=== PATIENT | male | born 1960 | race African-American/Black ===

== ENCOUNTER 2016-12-05 01:48 | Inpatient (IN) ==
[2016-12-05] MEDS ORDERED: Ipratropium/Albuterol Neb 3 ML IH ONE (01:49)
[2016-12-05] MEDS ORDERED: *HR* Nalbuphine 20 MG/ML AMPUL IVP STA (01:49)
[2016-12-05] MEDS ORDERED: Levofloxacin 500 MG/100 ML 500 MG/100 ML BAG IVPB ONE (01:49)
[2016-12-05] MEDS ORDERED: methylPREDNISolone 125 MG/2 ML VIAL IVP ONE (01:49)
--- NOTE | 2016-12-05 01:54 | Emergency Department Note ---
Disposition Clinical Impression: Atypical chest pain Disposition: Admitted As Inpatient Condition: Good Referrals: NO,PCP [Primary Care Provider] - Forms: ED Satisfaction Letter Time of Disposition: 06:53 Chest Pain HPI - General Chief Complaint: ED Chest Pain Stated Complaint: right rib pain Time Seen by Provider: 12/05/16 01:50 Source: patient, EMS Mode of arrival: EMS Limitations: no limitations Vital Signs Reviewed: Yes Nursing Notes Reviewed: Yes - History of Present Illness HPI Narrative: Patient seen earlier today complaining of right rib pain at that time was found to have rib pain was given breathing treatments withstood seemed to help and had sats of 90% H did not want to stay at that time he was then discharged home he now returns back to the emergency room complaining of right rib pain worse with respiration worse with movement he has had cough no congestion denies any abdominal pain or discomfort denies diarrhea melena hematochezia or hematemesis Pt complaint: chest pain Onset (ago): day(s) (2) Duration: constant Onset: during rest, during exertion Pain Location: right chest Severity: moderate, severe Severity scale (1-10): 8 Quality: tightness Improves with: nothing Worsens with: exertion Context: trauma/injury Associated symptoms: Reports: dyspnea. Denies: nausea, vomiting, diaphoresis, sense of impending doom, syncope, palpitations, fever, cough, leg swelling Treatments prior to arrival chest pain: none - Related Data Home Medications Medication Instructions Recorded Confirmed ALPRAZolam [Xanax 1 MG Tablet] 1 mg PO BID PRN 12/04/16 12/04/16 Allopurinol [Zyloprim 300 MG] 300 mg PO DAILY 12/04/16 12/04/16 Amlodipine Besylate 10 mg PO DAILY 12/04/16 12/04/16 Amoxicillin 875 mg PO BID 12/04/16 12/04/16 Bromfed Dm Cough Syrup 10 ml PO Q8H 12/04/16 12/04/16 Cholecalciferol (D-3) [Vitamin D] 1,000 unit PO DAILY 12/04/16 12/04/16 Cyanocobalamin (B-12) [Vitamin B12] 1,000 mcg IM QMONTH 12/04/16 12/04/16 Fexofenadine/Pseudoephedrine 1 each PO DAILY 12/04/16 12/04/16 [[place]-D 12 Hour Tablet] Fluticasone Propionate Nasal 2 spray IN BID 12/04/16 12/04/16 [Flonase] Furosemide [Lasix] 40 mg PO BID 12/04/16 12/04/16 Labetalol HCl 200 mg PO BID 12/04/16 12/04/16 Lisinopril/Hydrochlorothiazide 1 tab PO BID 12/04/16 12/04/16 [Zestoretic 10-12.5 mg Tablet] Metoprolol Tartrate 50 mg PO BID 12/04/16 12/04/16 Omeprazole [PriLOSEC] 20 mg PO DAILY 12/04/16 12/04/16 OxyCODONE/APAP 10/325 [Percocet 1 tab PO TID PRN 12/04/16 12/04/16 10/325 MG] Simvastatin [Zocor] 20 mg PO DAILY 12/04/16 12/04/16 Previous Rx's Medication Instructions Recorded Albuterol Sulfate [Albuterol 2 puff IH Q6H #1 puff 12/04/16 Inhaler] Dextromethorphan HBr [Robitussin 5 ml PO Q6H #150 syrup 12/04/16 Pediatric Cough] HYDROcodone/Acet 5/325 mg [[place] 1 tab PO Q6H #14 tab 12/04/16 5-325 mg] PredniSONE [Deltasone] 40 mg PO DAILY #10 tablet 12/04/16 Allergies Allergy/AdvReac Type Severity Reaction Status Date / Time No Known Allergies Allergy Verified 12/04/16 16:28 All systems ED: reviewed and negative except as stated. Constitutional: Denies: fever, chills, weakness Eyes: Denies: eye pain, eye discharge ENT ED: Denies: ear pain Cardiovascular: Reports: chest pain, dyspnea on exertion. Denies: palpitations Respiratory: Reports: dyspnea, wheezes. Denies: cough Gastrointestinal: Denies: abdominal pain Genitourinary: Denies: urgency Musculoskeletal: Denies: back pain Integumentary: Denies: rash Neurological: Denies: headache Psychiatric: Denies: anxiety Endocrine: Denies: fatigue Hematological/Lymphatic: Denies: easy bleeding Chest Pain PMH - Past Medical History Medical history: Reports: hyperlipidemia, hypertension Psychiatric history: Reports: no psych history - Social History Smoking Status: Current every day smoker Alcohol use: Reports: occasionally Drug use: Reports: none Physical Exam - General Limitations: no limitations General appearance: alert, in no apparent distress, anxious - Head Head exam: atraumatic, normocephalic, normal inspection - Eye Eye exam: Present: normal appearance, PERRL, EOMI - ENT ENT exam: normal exam, normal oropharynx, mucous membranes moist, normal external ear exam - Neck Neck exam: Present: normal inspection, full ROM, trachea midline - Chest Chest inspection: Present: normal inspection, symmetric chest wall rise, tenderness (right ribs) - Respiratory Respiratory exam: Present: normal lung sounds bilaterally, wheezes - Cardiovascular Cardiovascular exam: Present: regular rate, normal rhythm, normal heart sounds - Abdominal Exam Abdominal exam: Present: soft, Non-Tender, normal bowel sounds. Absent: mass, pulsatile mass - Extremities Exam Extremities exam: Present: normal inspection, full ROM, normal capillary refill. Absent: tenderness, joint swelling - Expanded Lower Extremity Exam Neurovascular/Tendon exam: Present: normal capillary refill, normal fine/light touch Gait: observed and normal - Back Exam Back exam: Present: normal inspection, full ROM. Absent: muscle spasm - Neurological Exam Neurological exam: Present: alert, oriented X3, CN II-XII intact, normal gait - Psychiatric Psychiatric exam: Present: normal affect, normal mood - Skin Skin exam: Present: warm, dry, intact, normal color Course Course Narrative: Patient seen CT performed anticipated admission Vital Signs Temperature 99.8 F H 12/05/16 01:49 Pulse Rate 133 12/05/16 01:49 Respiratory Rate 19 12/05/16 01:49 Blood Pressure 141/73 12/05/16 01:49 O2 Sat by Pulse Oximetry 90 12/05/16 01:49 Temperature 99.8 F H 12/05/16 05:40 Pulse Rate 112 12/05/16 05:40 Respiratory Rate 18 12/05/16 05:40 Blood Pressure 146/77 12/05/16 05:40 O2 Sat by Pulse Oximetry 92 12/05/16 05:40 Oxygen Delivery Oxygen Delivery Nasal Cannula Chest Pain - Differential Diagnosis Likely: fracture of rib, pneumothorax, chest pain - Medical Records Medical records reviewed: Yes I reviewed the patient's medical records. - Lab Data Lab results reviewed: Yes I reviewed the patient's lab results. Lab Results 12/05/16 Range/Units 05:00 Urine Color Yellow (Yellow) Urine Clarity Clear (Clear) Urine pH 6.0 (5.0-8.0) pH Units Ur Specific [place] <= 1.005 L (1.010-1.025) Urine Protein Negative (Neg-Trace) mg/dL Urine Glucose (UA) Normal (Normal) mg/dL Urine Ketones Negative (Negative) mg/dL Urine Blood Negative (Negative) Urine Nitrite Negative (Negative) Urine Bilirubin Negative (Negative) Urine Urobilinogen Normal (Normal) mg/dL Ur Leukocyte Esterase Negative (Negative) Ur Culture Indicated? NO (NO) see results from 1600 hr - Radiology Data Radiology results reviewed: Yes I reviewed the patient's radiology results. ITS Impressions Chest CTA 12/05/16 01:50 IMPRESSION: 1. The study is nondiagnostic to evaluate for a pulmonary artery embolus. Consider a repeat CTA chest or further evaluation with a V/Q scan if necessary. 2. Trace left pleural effusion. 3. 9 mm left upper lobe pulmonary nodule, which may be a benign a faintly calcified granuloma. A follow-up chest CT is suggested, as outlined below. 4. Pulmonary artery hypertension. RECOMMENDATIONS: Fleischner Society guidelines for follow-up and management of incidentally detected pulmonary nodules: Single Solid Nodule: Nodule size greater than 8 mm In a low-risk patient, consider CT, PET/CT, or tissue sampling at 3 months. In a high-risk patient, consider CT, PET/CT, or tissue sampling at 3 months. - Low risk patients include individuals with minimal or absent history of smoking and other known risk factors. - High risk patients include individuals with a history or smoking or known risk factors. Radiology 2017 http://pubs.rsna.org/doi/full/10.1148/radiol.[email or web address] D/ / Miguel Duke MD / Miguel Duke MD Interpreting Provider: Miguel Duke MD Abdomen/Pelvis CT 12/05/16 02:12 IMPRESSION: There is a nonspecific localized inflammatory process in the right lower quadrant with fat stranding in the region of the cecum, ileocecal valve and terminal ileum. The appendix is normal. This may be secondary to a nonspecific terminal ileitis or typhlitis. Follow-up CT study with bowel contrast and IV contrast or colonoscopy may be helpful. D/ / Dexter Padilla MD / Dexter Padilla MD Interpreting Provider: Dexter Padilla MD - EKG Data EKG attestation: Yes I reviewed and interpreted this EKG. EKG results narrative: Sinus tach 133 DE 159 QRS 86 QT to 99 and axis 2 Critical Care Time Critical Care Time: No
[2016-12-05] MEDS ORDERED: 0.9 % Sodium Chloride 1,000 ML IVC ONE (02:09)
[2016-12-05 05:37] LABS: Bilirubin,Urine Negative (Negative); Blood,Urine Negative (Negative); Clarity,Urine Clear (Clear); Color,Urine Yellow (Yellow); Glucose,Urine (UA) Normal (Normal); Ketones,Urine Negative (Negative); Leukocyte Esterase,Urine Negative (Negative); Nitrite,Urine Negative (Negative); Protein,Urine Negative (Neg-Trace); Specific Gravity,Urine <= 1.005 (1.010-1.025); Urobilinogen,Urine Normal (Normal)
[2016-12-05] MEDS ORDERED: MetroNIDAZOLE 500 MG/100 ML 500 MG/100 ML BAG IVPB ONE (06:26)
[2016-12-05] MEDS ORDERED: *HR* HYDROmorphone (PF) 1 MG/ML SYRINGE IVP ONE (06:27)
[2016-12-05] MEDS ORDERED: Ondansetron 4 MG/2 ML VIAL IVP PRN (07:51)
[2016-12-05] MEDS ORDERED: *HR* HYDROcodone/Acet 5/325 mg TABLET PO SCH (07:51)
[2016-12-05] MEDS ORDERED: Naloxone 0.4 MG/ML INJ IVP PRN (07:51)
[2016-12-05] MEDS ORDERED: 0.9 % Sodium Chloride 1,000 ML IVC SCH (07:51)
[2016-12-05] MEDS ORDERED: *HR* HYDROmorphone (PF) 1 MG/ML SYRINGE IVP PRN (07:51)
[2016-12-05] MEDS ORDERED: ALPRAZolam 1 MG TABLET PO PRN (07:51)
[2016-12-05] MEDS ORDERED: *HR* Dextrose 50 % in Water (Syg) 50 ML SYRINGE IVP PRN (07:51)
[2016-12-05] MEDS ORDERED: Dextrose Gel 15 GM PO PRN ×2 (07:51)
[2016-12-05] MEDS ORDERED: D5% in Water 1,000 ML IVC PRN (07:51)
[2016-12-05] MEDS ORDERED: *HR* OxyCODONE/APAP 10/325 TABLET PO PRN (07:51)
[2016-12-05] MEDS ORDERED: NON-FORMULARY MEDICATION 1 EACH EACH (Cyanocobalamin (B-12) 1,000 MCG) IM SCH (07:51)
[2016-12-05] MEDS ORDERED: Levofloxacin 500 MG/100 ML 500 MG/100 ML BAG IVPB SCH (09:00)
[2016-12-05] MEDS ORDERED: predniSONE 20 MG TABLET PO SCH (09:00)
[2016-12-05] MEDS ORDERED: Loratadine/Pseudophed (12 HR) 1 EACH TABLET PO SCH (09:00)
[2016-12-05] MEDS: Insulin LISPRO 300 UNITS/3 ML VIAL SQ SCH ×4 (09:26→21:07)
[2016-12-05] MEDS: amLODIPine 5 MG TABLET PO SCH (09:34)
[2016-12-05] MEDS: Furosemide 40 MG TABLET PO SCH ×2 (09:34→16:34)
[2016-12-05] MEDS: Cholecalciferol (D-3) 1,000 UNIT TABLET PO SCH (09:34)
[2016-12-05] MEDS ORDERED: Ipratropium/Albuterol Neb 3 ML IH SCH (11:00)
--- NOTE | 2016-12-05 12:14 | Internal Med History&Physical ---
Date of Encounter: 12/05/16 Time of Encounter: 11:30 Assessment and Plan (1) Right lower quadrant pain Current visit: Yes Status: Acute CT scans show evidence of terminal ileitis and inflammation of the cecum. Will change diet to clear liquid and recheck labs in a.m. (2) Hypertension Current visit: Yes Status: Chronic Will hold lisinopril/HCTZ and Lasix because of azotemia. Will monitor blood pressure and adjust medications as needed. Qualifiers: Hypertension type: essential hypertension Qualified Code(s): I10 - Essential (primary) hypertension (3) Azotemia Current visit: Yes Status: Chronic Will hold Lasix and lisinopril/ HCTZ as per above. Recheck labs in a.m. (4) Hyperlipidemia Current visit: Yes Status: Chronic Continue statin for now Qualifiers: Hyperlipidemia type: unspecified Qualified Code(s): E78.5 - Hyperlipidemia , unspecified (5) Anemia Current visit: Yes Status: Acute We will check anemia testing in a.m. Qualifiers: Anemia type: unspecified type Qualified Code(s): D64.9 - Anemia, unspecified (6) Gout Current visit: Yes Status: Chronic Check uric acid level in a.m. Qualifiers: Gout site: unspecified site Gout etiology: unspecified cause Chronicity: chronic Presence of tophus: without tophus Qualified Code(s): M1A.9XX0 - Chronic gout, unspecified, without tophus (tophi) Internal Medicine - H&P: HPI Chief complaint: RLQ pain Admitted From: Home Plans for Post Hospital Care: Home History of present illness: Mr. Chew is a 56 year old male who came to the emergency room stating he developed RLQ pain the evening of December 02 while working on his car. It persisted so he came to emergency room the evening of December 04. A CT scan was done of the abdomen/pelvis and chest. The abdominal/pelvic CT showed inflammatory changes of the right lower quadrant of the ileocecal and terminal ileal region. Chest CT showed 9 mm left upper lobe nodule. The CTA bolus was an adequate to evaluate for PE. He was discharged from the emergency room with prednisone, [place], Robitussin, and albuterol inhaler. He returned emergency room a few hours later because of persistent RLQ pain. Repeat abdomen/pelvis CT was done which again showed inflammatory changes in the ileocecal and terminal ileum. He was admitted to [facility] floor for ongoing care needs. He reports nausea but no vomiting. He states the pain seems to primarily be in the RLQ but does occasionally radiate to his shoulder, back, and elsewhere in his abdomen. He has had cholecystectomy. He has been previously diagnosed with fatty liver and it was recommended he discontinue alcohol ingestion which he has not done. He denies disorders of his exocrine pancreas, melena or hematochezia. Past Med Surg Social Fam HX - Past Medical History Medical history: hyperlipidemia, hypertension Psychiatric history: no psych history - Social History Smoking Status: Current every day smoker Smokeless Tobacco Status: No Alcohol use: occasionally Drug use: none Internal Medicine - H&P: Meds ALPRAZolam [Xanax 1 MG Tablet] 1 mg PO BID PRN 12/04/16 [History] Albuterol Sulfate [Albuterol Inhaler] 2 puff IH Q6H #1 puff 12/04/16 [Rx] Allopurinol [Zyloprim 300 MG] 300 mg PO DAILY 12/04/16 [History] Amlodipine Besylate 10 mg PO DAILY 12/04/16 [History] Amoxicillin 875 mg PO BID 12/04/16 [History] Bromfed Dm Cough Syrup 10 ml PO Q8H 12/04/16 [History] Cholecalciferol (D-3) [Vitamin D] 1,000 unit PO DAILY 12/04/16 [History] Cyanocobalamin (B-12) [Vitamin B12] 1,000 mcg IM QMONTH 12/04/16 [History] Dextromethorphan HBr [Robitussin Pediatric Cough] 5 ml PO Q6H #150 syrup [Rx] Fexofenadine/Pseudoephedrine [[place]-D 12 Hour Tablet] 1 each PO DAILY [History] Fluticasone Propionate Nasal [Flonase] 2 spray IN BID 12/04/16 [History] Furosemide [Lasix] 40 mg PO BID 12/04/16 [History] HYDROcodone/Acet 5/325 mg [[place] 5-325 mg] 1 tab PO Q6H #14 tab 12/04/16 [Rx] Labetalol HCl 200 mg PO BID 12/04/16 [History] Lisinopril/Hydrochlorothiazide [Zestoretic 10-12.5 mg Tablet] 1 tab PO BID 12/04 [History] Metoprolol Tartrate 50 mg PO BID 12/04/16 [History] Omeprazole [PriLOSEC] 20 mg PO DAILY 12/04/16 [History] OxyCODONE/APAP 10/325 [Percocet 10/325 MG] 1 tab PO TID PRN 12/04/16 [History] PredniSONE [Deltasone] 40 mg PO DAILY #10 tablet 12/04/16 [Rx] Simvastatin [Zocor] 20 mg PO DAILY 12/04/16 [History] Allergies No Known Allergies Allergy (Verified 12/04/16 16:28) All Systems PM: A 10-system review of systems was performed and is negative for pertinent findings except as documented above in the HPI. Review of systems: Gen.: He states his weight has been stable the past few months Cardiovascular: He has a history of hypertension. He denies [place] heart failure DVT or pulmonary embolus. He thinks he had exercise stress test approximately 2009 which was unremarkable. He rarely gets chest pain on exertion Respiratory: He has smoked since age 19 never up to 1 pack per day. He denies a diagnosis of COPD/emphysema. He does get dyspneic on exertion occasionally. GI: As per history of present illness :. He denies disorders of his kidneys bladder or prostate. He was unaware labwork shows azotemia with creatinine level of 1.54 in October 2014. Neurologic: He denies large distribution strokes or seizures. Endocrine: He has been told he is borderline diabetic. He has hyperlipidemia. He denies thyroid disease Hematology/oncology: He has been told in the past he was anemic but states it resolved. He denies internal malignancies Psychiatric: He states he is under stress and uses Xanax as needed. Denies other mental health diagnosis [place] skeletal: He has diagnosis of gout and DJD. He has had bilateral carpal tunnel surgery repair, right knee replacement, and back surgery. - Constitutional Vitals: Temp Pulse Resp BP Pulse Ox 97.6 F 105 16 112/72 96 12/05/16 11:25 12/05/16 11:25 12/05/16 11:25 12/05/16 11:25 12/05/16 11:25 Exam: Gen.: He is a well-developed overweight male who appears in no severe distress at present time HEENT: Head is atraumatic and normocephalic. Eyes: EOMI. There is no scleral icterus. Mouth: Mucosa is moist. Neck: Supple and nontender. There is no thyromegaly or adenopathy noted. Heart: Regular without murmurs gallops or ectopics with rate 108/m Lungs: He has diminished breath sounds diffusely but no wheezes or crackles are heard. Abdomen: Abdomen is slightly tympanitic to percussion. Bowel sounds are diminished and essentially absent. There is tenderness to palpation in the right lower quadrant. No masses or guarding are noted. Extremities: There is no cyanosis edema or clubbing noted. Dorsalis pedis and posterior tibial pulses are 1-2/2 palpable bilaterally. Neurologic: Mental status: He is talkative and a good historian. Cranial nerves : Smile is symmetric. Forehead wrinkles bilaterally. Tongue protrudes midline. EOMI. Motor: There is no pronator drift. Cerebellar: Finger to nose is intact bilaterally. Skin: Warm and dry
[2016-12-05] MEDS: Fluticasone Propionate Nasal 50 MCG/SPRAY BOTTLE NS SCH ×2 (15:29→21:04)
[2016-12-05] MEDS: *HR* HYDROmorphone (PF) 1 MG/ML SYRINGE IVP PRN ×3 (15:41→22:55)
[2016-12-05] MEDS: 0.45 % Sodium Chloride w/KCl 20 MEQ/1,000 ML MLS IVC SCH (15:41)
[2016-12-05] MEDS: MetroNIDAZOLE 500 MG/100 ML 500 MG/100 ML BAG IVPB SCH ×2 (15:44→16:34)
--- NOTE | 2016-12-05 18:58 | Electrocardiograph Report ---
[address] [address] Test Date: 2016-12-05 Pat Name: Gallo Chew Department: [id number] Room: [facility] Gender: M [employer]: [id number] : 1960 Requested By: Lalita Fragoso Order Number: [id number] Reading MD: Sung June MD Measurements Intervals [place] Rate: 133 P: 38 NM: 159 QRS: 2 QRSD: 86 T: 34 QT: 299 QTc: 377 Interpretive Statements SINUS TACHYCARDIA BASELINE ARTIFACT Electronically Signed On 12-05-2016 18:56:52 EDT by Sung June MD
[2016-12-05] MEDS: *HR* OxyCODONE/APAP 10/325 TABLET PO PRN (19:40)
[2016-12-05] MEDS ORDERED: Fluticasone Propionate Nasal 50 MCG/SPRAY BOTTLE NS PRN (21:05)
[2016-12-06] MEDS: 0.45 % Sodium Chloride w/KCl 20 MEQ/1,000 ML MLS IVC SCH ×2 (01:52→05:49)
[2016-12-06] MEDS: MetroNIDAZOLE 500 MG/100 ML 500 MG/100 ML BAG IVPB SCH ×4 (01:55→23:58)
[2016-12-06] MEDS: *HR* OxyCODONE/APAP 10/325 TABLET PO PRN ×3 (02:03→18:42)
[2016-12-06] MEDS: *HR* HYDROmorphone (PF) 1 MG/ML SYRINGE IVP PRN ×3 (05:57→23:57)
[2016-12-06] MEDS ORDERED: *HR* Enoxaparin 40 MG/0.4 ML SYRINGE SQ SCH (06:00)
[2016-12-06 06:44] LABS: Basophils % 0.1 %; Hematocrit 32.5 % (37.5-50.1); Hemoglobin 11.4 g/dL (12.9-16.9); Immature Granulocytes % 1.1 % (0-4); Lymphocytes # 1.1 K/mcL (0.6-4.6); Lymphocytes % 8.2 %; Mean Corpuscular HGB Conc 35.1 g/dL (31.6-35.5); Mean Corpuscular Hemoglobin 29.5 pg (28.0-33.3); Mean Platelet Volume 10.2 fL (9.4-12.4); Monocytes # 0.9 K/mcL (0.0-1.3); Monocytes % 6.7 %; Neutrophils # 10.9 K/mcL (1.6-8.9); Platelet Count 259 K/mcL (140-400); Red Blood Count 3.87 M/mcL (4.19-5.50); Red Cell Distribution Width 13.7 % (11.5-14.5); Segmented Neutrophils % 83.9 %
[2016-12-06 06:51] LABS: INR 1.3
[2016-12-06 07:07] LABS: Albumin 3.2 g/dL (3.5-5.0); Albumin/Globulin Ratio 0.7 (1.1-2.2); Bilirubin,Total 0.4 mg/dL (0.2-1.2); Calcium 9.2 mg/dL (8.6-10.8); Globulin 4.3 g/dL (2.4-3.5); Magnesium 1.5 mg/dL (1.6-2.6); Total Protein 7.5 g/dL (6.0-8.3); Uric Acid 6.5 mg/dL (3.5-7.2)
[2016-12-06 07:27] LABS: Thyroid Stimulating Hormone 0.659 mcIU/mL (0.350-4.840)
[2016-12-06] MEDS: Insulin LISPRO 300 UNITS/3 ML VIAL SQ SCH ×4 (08:18→20:48)
[2016-12-06] MEDS: Furosemide 40 MG TABLET PO SCH (08:20)
[2016-12-06] MEDS: Cholecalciferol (D-3) 1,000 UNIT TABLET PO SCH (08:20)
[2016-12-06] MEDS: amLODIPine 5 MG TABLET PO SCH (08:21)
[2016-12-06 08:57] LABS: Hemoglobin A1C 5.7 %
[2016-12-06] MEDS: Albuterol 2.5 MG/3 ML NEBULIZER IH PRN ×2 (09:51→23:39)
[2016-12-06 10:52] LABS: Folate 7.9 ng/mL (7.0-31.4)
--- NOTE | 2016-12-06 15:35 | Internal Med Progress Note ---
Date of Encounter: 12/06/16 Time of Encounter: 15: - Assessment and plan (1) Right lower quadrant pain Current Visit: Yes Status: Acute Assessment and plan: December 06. Continue clear liquid diet and IV Cipro and Flagyl. Recheck labs in a.m. (2) Hypertension Current Visit: Yes Status: Chronic Assessment and plan: December 06. Pressures are well-controlled off lisinopril/HCTZ and Lasix. Continue Lopressor and Norvasc. Will increase Lopressor and discontinue labetalol. Qualifiers: Hypertension type: essential hypertension Qualified Code(s): I10 - Essential (primary) hypertension (3) Azotemia Current Visit: Yes Status: Chronic Assessment and plan: December 06. Probable chronic kidney disease stage III. We will continue IV fluids and recheck labs in a.m. (4) Hyperlipidemia Current Visit: Yes Status: Chronic Assessment and plan: December 06. Continue statin for now. Qualifiers: Hyperlipidemia type: unspecified Qualified Code(s): E78.5 - Hyperlipidemia , unspecified (5) Anemia Current Visit: Yes Status: Acute Assessment and plan: December 06. No factor deficiency was seen. We will continue to monitor CBC. Qualifiers: Anemia type: unspecified type Qualified Code(s): D64.9 - Anemia, unspecified (6) Gout Current Visit: Yes Status: Chronic Assessment and plan: December 06. Uric acid was acceptable at 6.5. Continue allopurinol Qualifiers: Gout site: unspecified site Gout etiology: unspecified cause Chronicity: chronic Presence of tophus: without tophus Qualified Code(s): M1A.9XX0 - Chronic gout, unspecified, without tophus (tophi) - Subjective Interval history: December 06. He has no new complaints. He states his right lower abdominal pain improved after I saw him yesterday but seems to be coming back now. - Constitutional Vitals: Temp Pulse Resp BP Pulse Ox 97.6 F 87 18 107/62 96 12/06/16 15:25 12/06/16 15:25 12/06/16 15:25 12/06/16 15:25 12/06/16 15:25 Exam: He appears in mild distress and pain lying in bed. There is tenderness to palpation in the right lower quadrant. Bowel sounds are diminished. Extremities show no edema. Heart is regular without murmurs gallops or ectopics. Lungs are clear anteriorly. I reviewed his medications and lab results. Internal Medicine: Result - Labs CBC & Chem 7: 12/06/16 06:28 12/06/16 06:28 Labs: Short CBC 12/06/16 Range/Units 06:28 WBC 13.0 H D (4.3-11.1) K/mcL Hgb 11.4 L (12.9-16.9) g/dL Hct 32.5 L (37.5-50.1) % Plt Count 259 (140-400) K/mcL Neutrophils # 10.9 H (1.6-8.9) K/mcL BMP 12/06/16 06:28 Sodium 137 Potassium 4.0 Chloride 102 Carbon Dioxide 19 BUN 26 D Creatinine 1.94 H Glucose 151 H Calcium 9.2 Liver Function 12/06/16 Range/Units 06:28 Total Bilirubin 0.4 (0.2-1.2) mg/dL AST 20 (5-34) Units/L ALT 36 (0-55) Units/L Alkaline Phosphatase 102 (38-126) Units/L Albumin 3.2 L (3.5-5.0) g/dL - ABG Interpretation ABG results: PT/INR, D-dimer PT 14.0 Seconds (9.4-12.1) H 12/06/16 06:28 Consult Discharge Plan - Plan Referrals: NO,PCP [Primary Care Provider] - 1 week
[2016-12-07 05:06] LABS: Eosinophils % 0.1 %; Hemoglobin 11.5 g/dL (12.9-16.9); Immature Granulocytes % 0.9 % (0-4); Lymphocytes # 1.6 K/mcL (0.6-4.6); Lymphocytes % 15.7 %; Mean Corpuscular HGB Conc 35.9 g/dL (31.6-35.5); Mean Corpuscular Hemoglobin 29.6 pg (28.0-33.3); Mean Corpuscular Volume 82.5 fL (83.0-100.0); Mean Platelet Volume 10.5 fL (9.4-12.4); Monocytes # 0.8 K/mcL (0.0-1.3); Monocytes % 8.1 %; Neutrophils # 7.8 K/mcL (1.6-8.9); Platelet Count 281 K/mcL (140-400); Red Blood Count 3.88 M/mcL (4.19-5.50); Red Cell Distribution Width 13.8 % (11.5-14.5); Segmented Neutrophils % 75.2 %
[2016-12-07 05:58] LABS: BUN/Creatinine Ratio 17 (6-26); Blood Urea Nitrogen 24 mg/dL (8-26); Calcium 9.3 mg/dL (8.6-10.8); Carbon Dioxide 23 mEq/L (19-29); Chloride 105 mEq/L (98-109); Glucose 102 mg/dL (70-99); Osmolality,Calculated 294 (280-300); Potassium 4.1 mEq/L (3.5-4.5); Sodium 140 mEq/L (136-145); eGFR For African Americans > 60 (> 60); eGFR For Non-African Americans 53 (> 60)
[2016-12-07] MEDS: *HR* Enoxaparin 40 MG/0.4 ML SYRINGE SQ SCH (06:16)
[2016-12-07] MEDS: Insulin LISPRO 300 UNITS/3 ML VIAL SQ SCH ×3 (07:27→18:59)
[2016-12-07] MEDS: MetroNIDAZOLE 500 MG/100 ML 500 MG/100 ML BAG IVPB SCH ×2 (07:31→17:00)
[2016-12-07] MEDS: Cholecalciferol (D-3) 1,000 UNIT TABLET PO SCH (07:32)
[2016-12-07] MEDS: amLODIPine 5 MG TABLET PO SCH (07:32)
[2016-12-07] MEDS: *HR* HYDROmorphone (PF) 1 MG/ML SYRINGE IVP PRN ×3 (07:41→19:15)
[2016-12-07] MEDS: *HR* OxyCODONE/APAP 10/325 TABLET PO PRN ×2 (08:47→21:00)
--- NOTE | 2016-12-07 11:17 | Internal Med Progress Note ---
Date of Encounter: 12/07/16 Time of Encounter: 11:10 - Assessment and plan (1) Right lower quadrant pain Current Visit: Yes Status: Acute Assessment and plan: December 06. Continue clear liquid diet and IV Cipro and Flagyl. Recheck labs in a.m. December 07. Continue present regimen. We will advance diet in a.m. (2) Hypertension Current Visit: Yes Status: Chronic Assessment and plan: December 06. Pressures are well-controlled off lisinopril/HCTZ and Lasix. Continue Lopressor and Norvasc. Will increase Lopressor and discontinue labetalol. December 07. Continue Lopressor and Norvasc. Qualifiers: Hypertension type: essential hypertension Qualified Code(s): I10 - Essential (primary) hypertension (3) Azotemia Current Visit: Yes Status: Chronic Assessment and plan: December 06. Probable chronic kidney disease stage III. We will continue IV fluids and recheck labs in a.m. December 07. Creatinine improved significantly to 1.38 with estimated GFR 53. Continue present regimen. (4) Hyperlipidemia Current Visit: Yes Status: Chronic Assessment and plan: December 06. Continue statin for now. Qualifiers: Hyperlipidemia type: unspecified Qualified Code(s): E78.5 - Hyperlipidemia , unspecified (5) Anemia Current Visit: Yes Status: Acute Assessment and plan: December 06. No factor deficiency was seen. We will continue to monitor CBC. Qualifiers: Anemia type: unspecified type Qualified Code(s): D64.9 - Anemia, unspecified (6) Gout Current Visit: Yes Status: Chronic Assessment and plan: December 06. Uric acid was acceptable at 6.5. Continue allopurinol Qualifiers: Gout site: unspecified site Gout etiology: unspecified cause Chronicity: chronic Presence of tophus: without tophus Qualified Code(s): M1A.9XX0 - Chronic gout, unspecified, without tophus (tophi) - Subjective Interval history: December 06. He has no new complaints. He states his right lower abdominal pain improved after I saw him yesterday but seems to be coming back now. December 07. He has no new complaints and states his abdominal pain has lessened. - Constitutional Vitals: Temp Pulse Resp BP Pulse Ox 98.7 F 75 18 107/62 92 12/07/16 11:05 12/07/16 11:05 12/07/16 11:05 12/07/16 11:05 12/07/16 11:05 Exam: He is resting comfortably in bed. His abdomen is nontender to palpation. Bowel sounds are present. I reviewed his medications and lab results. Internal Medicine: Result - Labs CBC & Chem 7: 12/07/16 04:34 12/07/16 04:34 Labs: Short CBC 12/07/16 Range/Units 04:34 WBC 10.3 (4.3-11.1) K/mcL Hgb 11.5 L (12.9-16.9) g/dL Hct 32.0 L (37.5-50.1) % Plt Count 281 (140-400) K/mcL Neutrophils # 7.8 (1.6-8.9) K/mcL BMP 12/07/16 04:34 Sodium 140 Potassium 4.1 Chloride 105 Carbon Dioxide 23 BUN 24 Creatinine 1.38 H Glucose 102 H Calcium 9.3 - ABG Interpretation ABG results: PT/INR, D-dimer PT 14.0 Seconds (9.4-12.1) H 12/06/16 06:28 Consult Discharge Plan - Plan Referrals: NO,PCP [Primary Care Provider] - 1 week
[2016-12-08] MEDS: MetroNIDAZOLE 500 MG/100 ML 500 MG/100 ML BAG IVPB SCH (00:01)
[2016-12-08] MEDS: *HR* Enoxaparin 40 MG/0.4 ML SYRINGE SQ SCH (06:12)
[2016-12-08] MEDS: *HR* HYDROmorphone (PF) 1 MG/ML SYRINGE IVP PRN ×2 (06:12)
[2016-12-08 07:45] VITALS: BP 121/74
[2016-12-08] MEDS: amLODIPine 5 MG TABLET PO SCH (08:31)
[2016-12-08] MEDS: Insulin LISPRO 300 UNITS/3 ML VIAL SQ SCH ×2 (08:31)
[2016-12-08] MEDS: Cholecalciferol (D-3) 1,000 UNIT TABLET PO SCH (08:31)
--- NOTE | 2016-12-08 09:46 | Discharge Summary ---
Date of Encounter: 12/08/16 Time of Encounter: 09:35 - Discharge Diagnosis (1) Ileitis, terminal Priority: Primary Status: Acute Qualifiers: Digestive disease complication type: unspecified complication Qualified Code(s): K50.019 - Crohn's disease of small intestine with unspecified complications (2) Hypertension Priority: Secondary Status: Chronic Qualifiers: Hypertension type: essential hypertension Qualified Code(s): I10 - Essential (primary) hypertension (3) Azotemia Priority: Secondary Status: Chronic (4) Hyperlipidemia Priority: Secondary Status: Chronic Qualifiers: Hyperlipidemia type: unspecified Qualified Code(s): E78.5 - Hyperlipidemia , unspecified (5) Anemia Priority: Secondary Status: Acute Qualifiers: Anemia type: unspecified type Qualified Code(s): D64.9 - Anemia, unspecified (6) Gout Priority: Secondary Status: Chronic Qualifiers: Gout site: unspecified site Gout etiology: unspecified cause Chronicity: chronic Presence of tophus: without tophus Qualified Code(s): M1A.9XX0 - Chronic gout, unspecified, without tophus (tophi) - Discharge Medications Prescriptions: Ciprofloxacin [Cipro] 500 mg PO BID #6 tablet Lactobacillus [Culturelle] 1 each PO BID #6 cap.sprink Metoprolol [Lopressor] 100 mg PO BID #60 tablet metroNIDAZOLE [Flagyl] 500 mg PO Q8H #9 tablet Home Medications: ALPRAZolam [Xanax 1 MG Tablet] 1 mg PO BID PRN 12/04/16 [History] Albuterol Sulfate [Albuterol Inhaler] 2 puff IH Q6H #1 puff 12/04/16 [Rx] Allopurinol [Zyloprim 300 MG] 300 mg PO DAILY 12/04/16 [History] Amlodipine Besylate 10 mg PO DAILY 12/04/16 [History] Bromfed Dm Cough Syrup 10 ml PO Q8H 12/04/16 [History] Cholecalciferol (D-3) [Vitamin D] 1,000 unit PO DAILY 12/04/16 [History] Cyanocobalamin (B-12) [Vitamin B12] 1,000 mcg IM QMONTH 12/04/16 [History] Dextromethorphan HBr [Robitussin Pediatric Cough] 5 ml PO Q6H #150 syrup [Rx] Fexofenadine/Pseudoephedrine [Catalina-D 12 Hour Tablet] 1 each PO DAILY [History] Fluticasone Propionate Nasal [Flonase] 2 spray IN BID 12/04/16 [History] HYDROcodone/Acet 5/325 mg [Amelia 5-325 mg] 1 tab PO Q6H #14 tab 12/04/16 [Rx] Omeprazole [PriLOSEC] 20 mg PO DAILY 12/04/16 [History] OxyCODONE/APAP 10/325 [Percocet 10/325 MG] 1 tab PO TID PRN 12/04/16 [History] Simvastatin [Zocor] 20 mg PO DAILY 12/04/16 [History] Ciprofloxacin [Cipro] 500 mg PO BID #6 tablet 12/08/16 [Rx] Lactobacillus [Culturelle] 1 each PO BID #6 cap.sprink 12/08/16 [Rx] Metoprolol [Lopressor] 100 mg PO BID #60 tablet 12/08/16 [Rx] metroNIDAZOLE [Flagyl] 500 mg PO Q8H #9 tablet 12/08/16 [Rx] Allergies/Adverse Reactions: Allergies No Known Allergies Allergy (Verified 12/04/16 16:28) Date of admission: 12/06/16 18:46 Primary care physician: David Thomas M.D. - Patient Status Disposition: Home, Self-Care Condition: Good Overall status at discharge: patient is progressing back to baseline - Discharge Instructions Follow Up With: David Thomas MD [Non-Partnered Physician] - 1 week - Diet and Activity Activity: resume usual activities as tolerated Diet: advance to your usual diet Hospital course: Mr. Chew is a 56 year old male who came to the emergency room stating he developed RLQ pain the evening of December 02 while working on his car. It persisted so he came to emergency room the evening of December 04. A CT scan was done of the abdomen/pelvis and chest. The abdominal/pelvic CT showed inflammatory changes of the right lower quadrant of the ileocecal and terminal ileal region. Chest CT showed 9 mm left upper lobe nodule. The CTA bolus was inadequate to evaluate for PE. He was discharged from the emergency room with prednisone, Amelia, Robitussin, and albuterol inhaler. He returned emergency room a few hours later because of persistent RLQ pain. Repeat abdomen/pelvis CT was done which again showed inflammatory changes in the ileocecal and terminal ileum. He was admitted to [facility] floor for ongoing care needs. Initial orders were written by the emergency room physician. I saw him on December 05 and performed the history and physical. He was started on IV Flagyl and Cipro. He had clinical improvement and WBC normalized by December 07 at 10.3 K with improvement in the differential. He was able to tolerate adequate amounts of food and fluid intake. He remained afebrile the last 24 hours of hospitalization. He will be discharged home with 3 additional days of oral Flagyl and Cipro with lactobacillus. Lasix and lisinopril/HCTZ were discontinued. His azotemia improved with a creatinine decreasing to 1.38 and estimated GFR rising to 53 by the day prior to discharge. He will remain off these medications at home. Metoprolol dose was increased to 100 mg twice a day and his labetalol, lisinopril/HCTZ, and Lasix were discontinued. He will remain on this regimen at home. Anemia testing showed iron 47, transferrin saturation 19%, ferritin 1636, B12 305, and folate 7.9. Magnesium returned minimally low at 1.5. I felt this would resolve spontaneously by discontinuing the diuretics. On December 08 he was stable for discharge home. He will follow with his PCP Dr. Thomas within 1 week. - Time Spent with Patient Total time spent providing and/or coordinating discharge services: - Constitutional Vitals: Temp Pulse Resp BP Pulse Ox 98.9 F 84 16 121/74 94 12/08/16 07:43 12/08/16 07:43 12/08/16 07:43 12/08/16 07:43 12/08/16 07:43
== END 2016-12-08 11:06 | disposition home or self-care (01) | DRG 386 ==
LOC: INPPIK 01:48 → EMEROOPIK 01:48 → INPPIK 08:05
PROVIDERS: ADMIT Internal Medicine; ATTEND Internal Medicine